=== PATIENT | male | born 1965 | race Caucasian/White ===

== ENCOUNTER 2018-11-18 20:01 | Observation (INO) | payer OTHER ==
[~2018-11-18] VITALS: Ht 167.6 cm; Wt 79.5 kg
[~2018-11-18 20:01] MED LIST: ASPI-831 PO; MECL12.574 PO; NICO-546 TRANSDERM; OMEG1CAP2 PO
[2018-11-18 20:14] VITALS: Ht 167.6 cm; Wt 79.5 kg
[2018-11-18] MEDS ORDERED: MECLIZINE 12.5 MG TAB PO ONE (22:30)
[2018-11-19 03:00] VITALS: BP 125/84; PULSE 85; RESP 18
[2018-11-19] MEDS ORDERED: ACETAMINOPHEN 325 MG TAB PO PRN (04:30)
[2018-11-19] MEDS ORDERED: MECLIZINE 12.5 MG TAB PO PRN (04:30)
[2018-11-19 07:13] VITALS: BP 118/76; PULSE 76; RESP 17
[2018-11-19] MEDS: ASPIRIN 81 MG TAB PO SCH (08:28)
[2018-11-19] MEDS: ENOXAPARIN 40 MG/0.4 ML SYG SC SCH (11:00)
[2018-11-19] MEDS: NICOTINE (21 MG/24 HR) PATCH TRANSDERM SCH (11:00)
[2018-11-19 15:52] VITALS: BP 125/74; PULSE 79; RESP 18
[2018-11-19 19:49] VITALS: BP 125/82; PULSE 74; RESP 18
[2018-11-19 23:56] VITALS: BP 122/75; PULSE 69; RESP 18
[2018-11-20 04:16] VITALS: BP 122/81; PULSE 67; RESP 18
[2018-11-20] MEDS ORDERED: PANTOPRAZOLE (EC) 40 MG TAB PO SCH (06:00)
[2018-11-20 07:21] VITALS: BP 126/75; PULSE 65; RESP 19
[2018-11-20] MEDS: ENOXAPARIN 40 MG/0.4 ML SYG SC SCH (09:00)
[2018-11-20] MEDS: NICOTINE (21 MG/24 HR) PATCH TRANSDERM SCH (09:00)
[2018-11-20] MEDS: ASPIRIN 81 MG TAB PO SCH (10:20)
[2018-11-20 11:12] VITALS: BP 126/85; PULSE 64; RESP 19
== END 2018-11-20 15:06 | disposition home or self-care (01) ==
LOC: E/R 20:01 → TEL 11-19 00:34
PROVIDERS: ADMIT Internal Medicine Nephrology; ATTEND Internal Medicine Nephrology
DX: R42 Dizziness and giddiness (principal); E78.5 Hyperlipidemia, unspecified; R65.10 Systemic inflammatory response syndrome (SIRS) of non-infectious origin without acute organ dysfunction; E66.3 Overweight; Z68.28 Body mass index [BMI] 28.0-28.9, adult; F17.200 Nicotine dependence, unspecified, uncomplicated; D64.9 Anemia, unspecified; Z79.82 Long term (current) use of aspirin; R80.9 Proteinuria, unspecified
CPT/HCPCS: 36415; 70450; 70551; 71045; 72141; 80048; 80053; 80061; 81003; 82962; 83036; 83540; 84484; 85025; 93005; 93306; 93880; G0378; J1650